=== PATIENT | male | born 2000 | race American Indian/Alaskan Native ===

== ENCOUNTER 2018-12-27 16:32 | Emergency (ER) | payer MEDICAID, OTHER ==
[2018-12-27] MEDS ORDERED: IBUPROFEN PO ONE ×2 (17:25→20:43)
--- NOTE | 2018-12-27 18:13 | XRay Report ---
PROCEDURE: XR FOOT 3+V RT TECHNIQUE: 3 views right foot HISTORY: puncture wound/pt stepped on a pitch fork COMPARISONS: None FINDINGS: No acute fracture or malalignment. Normal mineralization. Normal joint space. No calcaneal spur. No r adiopaque foreign body. No soft tissue gas. IMPRESSION: No acute fracture or malalignment No radiopaque foreign body or soft tissue gas. This document is electronically signed by James Yao MD., December 27 2018 06:10:34 PM ET
[2018-12-27] MEDS ORDERED: NORCO 7.5/325 PO ONE (20:43)
--- NOTE | 2018-12-27 20:43 | Emergency Department Report ---
ED Extremity Problem HPI - General Chief complaint: Extremity Injury, Lower Stated complaint: STEPPED ON PITCH FORK/RT FOOT Source: patient Mode of arrival: Ambulatory Limitations: No Limitations - History of Present Illness Initial comments: Patient is a [id number] male who states that earlier today he was walking outside and he accidentally stepped on a pitchfork which did puncture into his right foot. This did go through shoe. Patient states he did bandage the wound to control bleeding. Patient states he has 10 out of 10 pain. He is able to move his toes. Patient states pain is aching and throbbing sensation. Severity scale (0 -10): 10 - Related Data Previous Rx's Medication Instructions Recorded Last Taken Type Ibuprofen [Motrin] 800 mg PO Q8HR #20 tablet 01/18/14 Unknown Rx Mupirocin [Bactroban 2% Oint] 1 applic TP BID #15 tube 10/04/14 Unknown Rx Sulfamethoxazole/Trimethoprim 1 each PO Q12H #20 tablet 10/04/14 Unknown Rx [Bactrim Ds] traMADol [Ultram 50 MG tab] 50 mg PO Q6HR PRN #20 tablet 10/04/14 Unknown Rx Ibuprofen [Motrin] 800 mg PO Q8HR PRN #15 tablet 09/14/15 Unknown Rx cephALEXin [Keflex] 500 mg PO Q8HR #21 cap 09/14/15 Unknown Rx Amoxicillin/Potassium Clav 1 each PO BID #14 tablet 12/27/18 Unknown Rx [Augmentin 875-125 Tablet] Ciprofloxacin HCl [Cipro] 500 mg PO BID #14 tablet 12/27/18 Unknown Rx HYDROcodone/ACETAMINOPHEN 1 each PO Q6HR PRN #15 tablet 12/27/18 Unknown Rx [Hydrocodone-Acetamin 5-325 mg] Ibuprofen [Ibu] 800 mg PO Q8H PRN #20 tablet 12/27/18 Unknown Rx Allergies Allergy/AdvReac Type Severity Reaction Status Date / Time shellfish derived AdvReac Unknown Verified 12/27/18 16:36 ED Review of Systems ROS: Stated complaint: STEPPED ON PITCH FORK/RT FOOT Other details as noted in HPI Comment: All other systems reviewed and negative ED Past Medical Hx - Past Medical History Previous Medical History?: No - Surgical History Past Surgical History?: No - Social History Smoking Status: Never Smoker Substance Use Type: None - Medications Home Medications: Home Medications Medication Instructions Recorded Confirmed Last Taken Type Ibuprofen [Motrin] 800 mg PO Q8HR #20 tablet 01/18/14 Unknown Rx Mupirocin [Bactroban 2% Oint] 1 applic TP BID #15 tube 10/04/14 Unknown Rx Sulfamethoxazole/Trimethoprim 1 each PO Q12H #20 tablet 10/04/14 Unknown Rx [Bactrim Ds] traMADol [Ultram 50 MG tab] 50 mg PO Q6HR PRN #20 tablet 10/04/14 Unknown Rx Ibuprofen [Motrin] 800 mg PO Q8HR PRN #15 tablet 09/14/15 Unknown Rx cephALEXin [Keflex] 500 mg PO Q8HR #21 cap 09/14/15 Unknown Rx Amoxicillin/Potassium Clav 1 each PO BID #14 tablet 12/27/18 Unknown Rx [Augmentin 875-125 Tablet] Ciprofloxacin HCl [Cipro] 500 mg PO BID #14 tablet 12/27/18 Unknown Rx HYDROcodone/ACETAMINOPHEN 1 each PO Q6HR PRN #15 tablet 12/27/18 Unknown Rx [Hydrocodone-Acetamin 5-325 mg] Ibuprofen [Ibu] 800 mg PO Q8H PRN #20 tablet 12/27/18 Unknown Rx ED Physical Exam - General Limitations: No Limitations General appearance: alert, in no apparent distress - Head Head exam: Present: atraumatic, normocephalic - Eye Eye exam: Present: normal appearance - ENT ENT exam: Present: mucous membranes moist - Neck Neck exam: Present: normal inspection - Respiratory Respiratory exam: Absent: respiratory distress - Cardiovascular Cardiovascular Exam: Present: regular rate, normal rhythm - GI/Abdominal GI/Abdominal exam: Present: normal bowel sounds. Absent: distended - Rectal Rectal exam: Present: deferred - Extremities Exam Extremities exam: Present: normal inspection, tenderness (patient with 2 puncture wounds on the plantar surface of his right foot. There is some localized pain. There is no exit wound through the dorsum of the foot. He is able to move his toes with full range of motion.) - Back Exam Back exam: Present: normal inspection - Neurological Exam Neurological exam: Present: alert, oriented X3 - Psychiatric Psychiatric exam: Present: normal affect, normal mood - Skin Skin exam: Present: warm, dry, intact, normal color. Absent: rash ED Course Vital Signs 12/27/18 16:36 Temperature 98.5 F Pulse Rate 75 Respiratory 18 Rate Blood Pressure 145/80 O2 Sat by Pulse 100 Oximetry ED Medical Decision Making - Radiology Data Referring Physician: FAWN CERDA Patient Name: LAURIE SOLIS Date of : 2000 Sex: Male Report Date: 2018-12-27 Report Status: Finalized [facility] [address] [id number] XRay Report Signed Patient: LAURIE SOLIS MR#: [id number] : 2000 Acct:[id number] Age/Sex: 18 / M ADM Date: 12/27/18 Loc: ED Attending Dr: Ordering Physician: FAWN CERDA MD Date of Service: 12/27/18 Procedure(s): XR foot 3+V RT Accession Number(s): [id number] cc: FAWN CERDA MD Fluoro Time In Minutes: PROCEDURE: XR FOOT 3+V RT TECHNIQUE: 3 views right foot HISTORY: puncture wound/pt stepped on a pitch fork COMPARISONS: None FINDINGS: No acute fracture or malalignment. Normal mineralization. Normal joint space. No calcaneal spur. No radiopaque foreign body. No soft tissue gas. IMPRESSION: No acute fracture or malalignment No radiopaque foreign body or soft tissue gas. This document is electronically signed by James Najera MD., December 27 2018 06:10:34 PM ET Transcribed By: HJ Dictated By: JAMES NAJERA MD Electronically Authenticated By: JAMES NAJERA MD Signed Date/Time: 12/27/181812 DD/ 1800 TD/TT: 12/27/18 1800 - Medical Decision Making Patient was given a tetanus shot and started on antibiotics. Patient placed on Cipro secondary to this going through her shoe cover for pseudomonas. Patient placed on Augmentin to cover for MRSA. Patient to be discharged home with pain management. Critical care attestation.: If time is entered above; I have spent that time in minutes in the direct care of this critically ill patient, excluding procedure time. ED Disposition Clinical Impression: Puncture wound of foot Qualifiers: Encounter type: initial encounter Laterality: right Qualified Code(s): S91.331A - Puncture wound without foreign body, right foot, initial encounter Disposition: - TO HOME OR SELFCARE Is pt being admited?: No Does the pt Need Aspirin: No Condition: Stable Instructions: Puncture Wound (ED) Prescriptions: Amoxicillin/Potassium Clav [Augmentin 875-125 Tablet] 1 each PO BID #14 tablet Ciprofloxacin HCl [Cipro] 500 mg PO BID #14 tablet HYDROcodone/ACETAMINOPHEN [Hydrocodone-Acetamin 5-325 mg] 1 each PO Q6HR PRN #15 tablet PRN Reason: Pain , Severe (7-10) Ibuprofen [Ibu] 800 mg PO Q8H PRN #20 tablet PRN Reason: Pain , Severe (7-10) Referrals: EMILY PHAM DPM [Staff Physician] - 3-5 Days Time of Disposition: 20:41
[2018-12-27] MEDS ORDERED: AUGMENTIN 875 MG PO ONE (20:44)
[2018-12-27] MEDS ORDERED: LEVAQUIN PO ONE (20:44)
[2018-12-27 21:08] VITALS: BP 156/68
[2018-12-27] MEDS ORDERED: BOOSTRIX IM ONE (21:09)
[2018-12-27] MEDS ORDERED: TENIVAC IM ONE (22:18)
== END 2018-12-27 21:58 | disposition home or self-care (01) ==
LOC: ED 16:32
DX: S91.331A Puncture wound without foreign body, right foot, initial encounter (principal); W45.8XXA Other foreign body or object entering through skin, initial encounter; Y93.89 Activity, other specified; Y92.89 Other specified places as the place of occurrence of the external cause; Y99.8 Other external cause status
CPT/HCPCS: 90471; 90715